=== PATIENT | male | born 1970 | race African-American/Black ===

== ENCOUNTER 2021-07-11 13:21 | Inpatient (IN) | payer OTHER ==
[2021-07-11] MEDS ORDERED: ONDANSETRON *ODT* 4 MG TABLET SL PRN (14:33)
[2021-07-11] MEDS ORDERED: IBUPROFEN 400 MG TABLET (FP) PO PRN (14:33)
[2021-07-11] MEDS ORDERED: MAGNESIUM CITRATE 300 ML BOTTLE PO PRN (14:33)
[2021-07-11] MEDS ORDERED: diazePAM 5 MG TABLET PO PRN (14:33)
[2021-07-11] MEDS ORDERED: LOPERAMIDE HCL 2 MG CAPSULE PO PRN (14:33)
[2021-07-11] MEDS ORDERED: NICOTINE 10 MG CARTRIDGE (INHALER) IH PRN (14:33)
[2021-07-11] MEDS ORDERED: MAGNESIUM HYDROX 2400MG/30ML ORAL SUSPENSION 30 ML CUP PO PRN (14:33)
[2021-07-11] MEDS ORDERED: MENTHOL/PHENOL 1 EACH UD MM PRN (14:33)
[2021-07-11] MEDS ORDERED: MAG HYDROX/AL HYDROX/SIMETH 30 ML UNIT-DOSE CUP PO PRN (14:33)
[2021-07-11] MEDS ORDERED: ACETAMINOPHEN 325 MG TABLET (FP) PO PRN ×2 (14:33)
[2021-07-11] MEDS ORDERED: BISMUTH SUBSALICYLATE 262 MG/15 ML BTL PO PRN (14:33)
[2021-07-11] MEDS ORDERED: chlordiazePOXIDE HCL 25 MG CAPSULE PO PRN (14:33)
[2021-07-11] MEDS ORDERED: cloNIDine HCL 0.1 MG TABLET PO ONE (14:33)
[2021-07-11] MEDS ORDERED: METHOCARBAMOL 500 MG TABLET PO PRN (14:33)
[2021-07-11] MEDS ORDERED: BUPRENORPHINE HCL 150 MCG, BUPRENORPHINE HCL 75 MCG BC ONE (14:33)
[2021-07-11 15:52] VITALS: BMI 21.9
[2021-07-11] MEDS ORDERED: BUPRENORPHINE HCL 150 MCG FILM BC ONE (18:08)
[2021-07-11] MEDS ORDERED: BUPRENORPHINE HCL 75 MCG FILM BC ONE (18:09)
[2021-07-11] MEDS: chlordiazePOXIDE HCL 25 MG CAPSULE PO SCH ×2 (18:10→23:06)
[2021-07-11] MEDS: NICOTINE 7 MG/24 HOURS TOPICAL PATCH TD SCH (18:15)
[2021-07-11] MEDS: PRENATAL VITAMINS W/ FOLIC ACID TABLET (FP) PO SCH (18:16)
[2021-07-11] MEDS: hydrOXYzine PAMOATE 25 MG CAPSULE (FP) PO SCH ×2 (18:18→23:07)
[2021-07-11] MEDS ORDERED: cloNIDine HCL 0.1 MG TABLET PO PRN (18:33)
[2021-07-11] MEDS: MELATONIN 5 MG TABLETS PO SCH (23:06)
[2021-07-11] MEDS: THIAMINE HCL 100 MG TABLET (FP) PO SCH (23:07)
[2021-07-12] MEDS: chlordiazePOXIDE HCL 25 MG CAPSULE PO SCH ×4 (05:40→23:02)
[2021-07-12] MEDS: hydrOXYzine PAMOATE 25 MG CAPSULE (FP) PO SCH ×5 (05:40→23:05)
[2021-07-12] MEDS ORDERED: BUPRENORPHINE HCL 75 MCG FILM BC ONE ×2 (05:44→17:50)
[2021-07-12] MEDS: BUPRENORPHINE HCL 150 MCG, BUPRENORPHINE HCL 75 MCG BC SCH ×2 (05:44→18:34)
[2021-07-12] MEDS ORDERED: BUPRENORPHINE HCL 150 MCG FILM BC ONE ×2 (05:44→17:49)
[2021-07-12] MEDS: NICOTINE 7 MG/24 HOURS TOPICAL PATCH TD SCH (11:18)
[2021-07-12] MEDS: PRENATAL VITAMINS W/ FOLIC ACID TABLET (FP) PO SCH (11:18)
[2021-07-12 11:58] LABS: HEMATOCRIT 38.5 % (35.4-49); HEMOGLOBIN 12.2 GM/dL (11.7-16.9); MCH 24.7 pg (25.7-33.7); MCHC 31.7 g/dl (32.0-35.9); MEAN CELL VOLUME 77.8 fl (80-96); MEAN PLT VOLUME 9.3 fl (7.5-11.1); PLATELET COUNT 217 10^3/uL (134-434); RBC 4.96 M/mm3 (4.00-5.60); RDW 13.9 % (11.9-15.9); WHITE BLOOD COUNT 2.8 K/mm3 (4.0-10.0)
[2021-07-12 12:05] LABS: CALCIUM 8.6 mg/dL (8.5-10.1)
[2021-07-12 12:06] LABS: BLOOD UREA NITROGEN 10.2 mg/dL (7-18)
[2021-07-12 12:08] LABS: CREATININE 0.9 mg/dL (0.55-1.3)
[2021-07-12 12:09] LABS: BILIRUBIN,TOTAL 0.2 mg/dL (0.2-1); TOT PROT 6.2 g/dl (6.4-8.2)
[2021-07-12 15:39] LABS: HIV INTERPRETATION NEGATIVE (NEGATIVE)
[2021-07-12] MEDS: MELATONIN 5 MG TABLETS PO SCH (23:04)
[2021-07-12] MEDS: THIAMINE HCL 100 MG TABLET (FP) PO SCH (23:05)
[2021-07-13] MEDS ORDERED: chlordiazePOXIDE HCL 25 MG CAPSULE PO SCH (05:00)
[2021-07-13] MEDS ORDERED: BUPRENORPHINE HCL 450 MCG FILM BC SCH (06:00)
[2021-07-13] MEDS: hydrOXYzine PAMOATE 25 MG CAPSULE (FP) PO SCH (06:12)
[2021-07-13 07:10] VITALS: BP 151/74; PULSE 63; TEMP 96.9
[2021-07-14] MEDS ORDERED: chlordiazePOXIDE HCL 10 MG CAPSULE PO PRN
[2021-07-14] MEDS ORDERED: chlordiazePOXIDE HCL 10 MG CAPSULE PO SCH (05:00)
[2021-07-14] MEDS ORDERED: BUPRENORPHINE/NALOXONE 4 MG/1 MG FILM PACKET SL SCH (06:00)
[2021-07-14 06:38] LABS: SARS-CoV-2 NAA Not Detected (Not Detected)
[2021-07-15] MEDS ORDERED: chlordiazePOXIDE HCL 10 MG CAPSULE PO SCH (05:00)
[2021-07-15] MEDS ORDERED: BUPRENORPHINE/NALOXONE 8 MG/2 MG FILM PACKET SL ONE (06:00)
[2021-07-16] MEDS ORDERED: chlordiazePOXIDE HCL 10 MG CAPSULE PO ONE (05:00)
== END 2021-07-13 08:56 | disposition left against medical advice (07) | DRG 770 ==
LOC: YASAS 13:21 → Y6N 16:51
PROVIDERS: ADMIT Allergy & Immunology; ATTEND Allergy & Immunology
PROC: HZ2ZZZZ Detoxification Services for Substance Abuse Treatment (ICD-10-PCS; principal; 2021-07-11)
DX: F11.23 Opioid dependence with withdrawal (principal); F10.20 Alcohol dependence, uncomplicated; F14.20 Cocaine dependence, uncomplicated; F17.210 Nicotine dependence, cigarettes, uncomplicated; D72.819 Decreased white blood cell count, unspecified; R74.01 Elevation of levels of liver transaminase levels; Z59.00 Homelessness unspecified
CPT/HCPCS: 36415; 80053; 85027; 86780; 87389; 93005; 93010; C9803; Q0162; U0003; U0005